=== PATIENT | male | born 1965 | race Caucasian/White ===

== ENCOUNTER 2016-09-16 08:10 | Day surgery (SDC) | payer OTHER ==
[~2016-09-16 08:10] MED LIST: FENTANYL 250 MCG/5 ML AMP IV PRN; LACTATED RINGERS 1,000 ML IV SCH; MIDAZOLAM HCL 5 MG/5 ML VIAL IV PRN
[2016-09-16] MEDS ORDERED: IV START KIT ONE (08:27)
[2016-09-16] MEDS ORDERED: LACTATED RINGERS 1,000 ML ONE (08:27)
[2016-09-16] MEDS ORDERED: MIDAZOLAM HCL 5 MG/5 ML VIAL ONE (08:59)
[2016-09-16] MEDS ORDERED: FENTANYL 5 ML ONE (09:00)
--- NOTE | 2016-09-20 13:42 | SURGPATH ---
[facility] [address] [place] [id number] Patient Name: SHAMEKA JEAN BAPTISTE JR MR#: [id number] : 1965 Gender: M Specimen #: [id number] Collected: 09/16/2016 Received: 09/19/2016 Reported: 09/20/2016 Submitting Phys: EVANGELISTA LEWIS Copy To Phys: [facility] MILA WEINSTEIN Clinical History / Pre-Operative Diagnosis: COLON SCREENING Specimen Source / Surgical Procedure Performed: MID TRANSVERSE COLON POLYP Interpretation: COLON, MID TRANSVERSE, POLYP, POLYPECTOMY: - TWO FRAGMENTS OF TUBULAR ADENOMA Electronically Signed Out Dianna Valderrama M.D. Gross Description: The specimen is received in a formalin filled container labeled with the patient's name and "mid transverse colon polyp". Two rodriguez biopsies are 0.4 and 0.5 cm. Totally embedded in one cassette. Kane Lopez PJerri Microscopic Description: Three fragments of colonic mucosa are seen, two of which show crowded glands lined by hyperchromatic crowded epithelial cells. No high-grade dysplasia or carcinoma is seen. 1: 12804 D12.3
== END 2016-09-16 10:12 | disposition home or self-care (01) ==
LOC: SDC 08:10
PROVIDERS: ATTEND Internal Medicine Gastroenterology
PROC: 0DBL8ZX Excision of Transverse Colon, Via Natural or Artificial Opening Endoscopic, Diagnostic (ICD-10-PCS; principal; 2016-09-16)
DX: Z12.11 Encounter for screening for malignant neoplasm of colon (principal); D12.3 Benign neoplasm of transverse colon; I10 Essential (primary) hypertension; Z79.82 Long term (current) use of aspirin